=== PATIENT | female | born 1990 | race Two or more races ===

== ENCOUNTER 2022-10-24 10:10 | Emergency (ER) | payer SELFPAY ==
[~2022-10-24] VITALS: Ht 167.6 cm; Wt 78.6 kg
[2022-10-24 10:10] VITALS: BP 116/75; PULSE 120; RESP 18; O2SAT 98
[~2022-10-24 10:10] MED LIST: ACET-1080 PO; NITR-87 PO
== END 2022-10-24 12:20 | disposition home or self-care (01) ==
LOC: ER 10:10
DX: O02.1 Missed abortion (principal); F15.90 Other stimulant use, unspecified, uncomplicated; Z88.2 Allergy status to sulfonamides; Z88.8 Allergy status to other drugs, medicaments and biological substances; Z59.00 Homelessness unspecified
CPT/HCPCS: 36415; 84702

== ENCOUNTER 2022-11-26 17:56 | Emergency (ER) | payer SELFPAY ==
[~2022-11-26] VITALS: Ht 170.2 cm; Wt 77.2 kg
[2022-11-26 17:56] VITALS: BP 112/66; PULSE 94; RESP 17; O2SAT 96
== END 2022-11-26 18:35 | disposition left against medical advice (07) ==
LOC: EDBD 17:56 → ER 17:56
DX: T40.411A Poisoning by fentanyl or fentanyl analogs, accidental (unintentional), initial encounter (principal); F15.10 Other stimulant abuse, uncomplicated; R06.81 Apnea, not elsewhere classified; R40.4 Transient alteration of awareness; M06.9 Rheumatoid arthritis, unspecified; F17.210 Nicotine dependence, cigarettes, uncomplicated; Z90.49 Acquired absence of other specified parts of digestive tract; Z98.890 Other specified postprocedural states; Z88.8 Allergy status to other drugs, medicaments and biological substances; Z79.1 Long term (current) use of non-steroidal anti-inflammatories (NSAID); Z79.899 Other long term (current) drug therapy; Y92.89 Other specified places as the place of occurrence of the external cause

== ENCOUNTER 2023-02-02 18:13 | Emergency (ER) | payer SELFPAY ==
[~2023-02-02] VITALS: Ht 167.6 cm; Wt 88.0 kg
[2023-02-02 18:41] VITALS: BP 107/61; PULSE 84; RESP 22; O2SAT 98
== END 2023-02-02 19:30 | disposition left against medical advice (07) ==
LOC: ER 18:13
DX: R53.1 Weakness (principal); Z53.21 Procedure and treatment not carried out due to patient leaving prior to being seen by health care provider

== ENCOUNTER 2023-09-22 07:37 | Inpatient (IN) | payer OTHER ==
[~2023-09-22] VITALS: Ht 167.6 cm; Wt 72.7 kg
[2023-09-22 08:00] VITALS: PULSE 96; RESP 15; O2SAT 99
[2023-09-22 08:33] LABS: Basophils # (auto) 0 10 ^3/uL (0-0.2); Basophils % (auto) 0.2 % (0.0-2.0); Eosinophils # (auto) 0.1 10 ^3/uL (0-0.8); Eosinophils % (auto) 1.5 % (0.0-7.0); Hematocrit 43.1 % (36.0-46.0); Hemoglobin 14.3 g/dL (12.2-16.2); Lymphocytes # (auto) 1.2 10 ^3/uL (0.4-5.4); Mean Corpuscular Hemoglobin 31.3 pg (28.0-32.0); Mean Corpuscular Hgb Conc. 33.1 g/dL (32.0-36.0); Mean Corpuscular Volume 94.6 fL (80.0-100.0); Monocytes # (auto) 0.7 10 ^3/uL (0-1.3); Monocytes % (auto) 7.5 % (0.0-12.0); Neutrophils # (auto) 7.3 10 ^3/uL (1.6-8.6); Neutrophils % (auto) 77.8 % (37.0-80.0); Red Blood Cells 4.55 10^6/uL (4.0-5.20); Red Cell Distribution Width 13.5 % (11.8-14.3); White Blood Cell 9.3 10^3/uL (4.4-10.8)
[2023-09-22 08:41] LABS: Alanine Aminotransferase 24 U/L (7-40); Alkaline Phosphatase 51 U/L (46-116); Anion Gap 7 (5-15); Aspartate Aminotransferase 22 U/L (13-40); BUN/Creatinine Ratio 12.5 (10.0-20.0); Blood Alcohol < 3.0 mg/dL (<10); Blood Urea Nitrogen 7 mg/dL (9-23); Calcium 9.2 mg/dL (8.5-10.1); Carbon Dioxide 21 mmol/L (20-30); Chloride 110 mmol/L (98-107); Glucose 95 mg/dL (74-106); Potassium 3.9 mmol/L (3.5-5.1); Sodium 138 mmol/L (136-145)
[2023-09-22 08:42] LABS: Bilirubin, Total 0.5 mg/dL (0.2-1.0); Total Protein 6.6 g/dL (5.7-8.2)
[2023-09-22 09:09] LABS: Urine Bacteria None Seen /hpf (None Seen)
[2023-09-22 09:17] LABS: Urine Blood Negative /uL (Negative); Urine Clarity Clear (Clear); Urine Color Yellow (Yellow); Urine Mucus FEW (None Seen); Urine Protein, UAD Negative (Negative); Urine Specific Gravity 1.026 (1.001-1.035); Urine Urobilinogen Normal (Negative); Urine WBC 1 /hpf (0 - 5)
[2023-09-22 09:49] LABS: Amphetamine Screen, Urine Pos (NEGATIVE); Barbiturate Scree,Urine Neg (NEGATIVE); Benzodiazephine Screen, Urine Neg (NEGATIVE); Cocaine Screen, Urine Neg (NEGATIVE); Opiate Scree,Urine Neg (NEGATIVE)
[2023-09-22 09:50] LABS: Cannabinoid Screen, Urine Neg (NEGATIVE); Phencyclidine Screen, Urine Neg (NEGATIVE)
[2023-09-22] MEDS: SODIUM CHLORIDE 0.9% 1,000 ML IV ONE ×2 (10:45→16:48)
[2023-09-22 10:54] LABS: Acetaminophen < 2.0 UG/ML (10.0-20.0)
[2023-09-22 10:57] LABS: Salicylate < 3.0 mg/dL (2.8-20.0)
[2023-09-22] MEDS ORDERED: METOCLOPRAMIDE HCL 5MG/ml INJ 2ml VIAL IV PRN (12:15)
[2023-09-22] MEDS ORDERED: DOCUSATE SOD 100 MG CAP PO PRN (12:15)
[2023-09-22] MEDS: SODIUM CHLORIDE 0.9% 1,000 ML IV SCH (13:14)
[2023-09-22] MEDS ORDERED: NITROGLYCERIN 0.4 MG SL TAB SL PRN (13:30)
[2023-09-22] MEDS ORDERED: MORPHINE SULFATE INJ 2 MG/ml SYRG IV PRN (13:30)
[2023-09-22] MEDS ORDERED: LORazepam 2MG/ML-1ML VIAL IV PRN (14:30)
[2023-09-22 19:30] VITALS: PULSE 98; RESP 14; O2SAT 99
[2023-09-22 21:00] VITALS: PULSE 98; RESP 14; O2SAT 99
[2023-09-23 06:17] LABS: Basophils # (auto) 0 10 ^3/uL (0-0.2); Basophils % (auto) 0.4 % (0.0-2.0); Eosinophils # (auto) 0.4 10 ^3/uL (0-0.8); Eosinophils % (auto) 4.9 % (0.0-7.0); Hematocrit 40.1 % (36.0-46.0); Hemoglobin 13.6 g/dL (12.2-16.2); Lymphocytes # (auto) 1.7 10 ^3/uL (0.4-5.4); Mean Corpuscular Hemoglobin 31.7 pg (28.0-32.0); Mean Corpuscular Hgb Conc. 33.8 g/dL (32.0-36.0); Mean Corpuscular Volume 93.8 fL (80.0-100.0); Monocytes # (auto) 0.7 10 ^3/uL (0-1.3); Monocytes % (auto) 8.4 % (0.0-12.0); Neutrophils # (auto) 5.4 10 ^3/uL (1.6-8.6); Neutrophils % (auto) 65.3 % (37.0-80.0); Nucleated Red Blood Cells % 0.1 %; Red Blood Cells 4.27 10^6/uL (4.0-5.20); Red Cell Distribution Width 13.4 % (11.8-14.3); White Blood Cell 8.2 10^3/uL (4.4-10.8)
[2023-09-23 06:48] LABS: Alanine Aminotransferase 25 U/L (7-40); Albumin 3.5 g/dL (3.2-4.8); Alkaline Phosphatase 46 U/L (46-116); Anion Gap 6 (5-15); Aspartate Aminotransferase 23 U/L (13-40); Calcium 8.4 mg/dL (8.5-10.1); Carbon Dioxide 23 mmol/L (20-30); Chloride 110 mmol/L (98-107); Glucose 94 mg/dL (74-106); Potassium 3.4 mmol/L (3.5-5.1); Sodium 139 mmol/L (136-145)
[2023-09-23 06:49] LABS: BUN/Creatinine Ratio 11.1 (10.0-20.0); Bilirubin, Total 0.7 mg/dL (0.2-1.0); Blood Urea Nitrogen < 5 mg/dL (9-23); Total Protein 5.8 g/dL (5.7-8.2)
[2023-09-23 14:00] VITALS: TEMP 98.3
[2023-09-23 16:00] VITALS: BP 122/72
[2023-09-23 16:32] VITALS: PULSE 80; RESP 20; O2SAT 96
== END 2023-09-23 17:24 | disposition left against medical advice (07) | DRG 831 ==
LOC: ER 07:37 → EDBD 07:37 → EDUNIT# 07:37 → OVERFLOW 13:21
PROVIDERS: ADMIT Nurse Practitioner Family; ATTEND Nurse Practitioner Family
DX: O9A.211 Injury, poisoning and certain other consequences of external causes complicating pregnancy, first trimester (principal); G92.8 Other toxic encephalopathy; Z59.00 Homelessness unspecified; T40.412A Poisoning by fentanyl or fentanyl analogs, intentional self-harm, initial encounter; T43.652A Poisoning by methamphetamines intentional self-harm, initial encounter; F15.10 Other stimulant abuse, uncomplicated; O99.351 Diseases of the nervous system complicating pregnancy, first trimester; Z53.29 Procedure and treatment not carried out because of patient's decision for other reasons; F17.210 Nicotine dependence, cigarettes, uncomplicated; Y92.89 Other specified places as the place of occurrence of the external cause; Z88.2 Allergy status to sulfonamides; Z88.3 Allergy status to other anti-infective agents; Z90.49 Acquired absence of other specified parts of digestive tract
CPT/HCPCS: 36415; 76801; 80053; 80307; 80320; 80329; 81001; 81025; 84702; 85025; 93005; G0378

== ENCOUNTER 2024-04-28 17:12 | Observation (INO) | payer OTHER, MEDICARE ==
[~2024-04-28] VITALS: Ht 167.6 cm; Wt 99.8 kg
[2024-04-28] MEDS ORDERED: ACETAMINOPHEN IV 1000 MG/100ML (10MG/ML) IV PRN (17:45)
[2024-04-28] MEDS ORDERED: DIPHENOXYLATE W/ATROPINE 2.5 MG TAB PO ONE (17:45)
[2024-04-28] MEDS ORDERED: LACTATED RINGER'S 1,000 ML IV SCH (17:45)
[2024-04-28] MEDS: LACTATED RINGER'S 1,000 ML IV ONE (17:55)
[2024-04-28] MEDS ORDERED: PREN-96 PO (18:20)
[2024-04-28] MEDS ORDERED: ASPI-543 PO (18:20)
[2024-04-28 18:33] LABS: Protein, Urine 66.7 mg/dL (1-14)
[2024-04-28 18:36] LABS: Creatinine, Urine 215.43 mg/dL (30.0-125.0); Urine Protein/Creatinine Ratio 0.31
[2024-04-28 18:45] LABS: Amphetamine Screen, Urine Pos (NEGATIVE); Barbiturate Scree,Urine Neg (NEGATIVE); Benzodiazephine Screen, Urine Neg (NEGATIVE); Cannabinoid Screen, Urine Neg (NEGATIVE); Cocaine Screen, Urine Neg (NEGATIVE); Opiate Scree,Urine Neg (NEGATIVE); Phencyclidine Screen, Urine Neg (NEGATIVE)
[2024-04-28 18:48] LABS: Urine Bacteria FEW /hpf (None Seen); Urine Blood Negative /uL (Negative); Urine Clarity Clear (Clear); Urine Color Yellow (Yellow); Urine Mucus FEW (None Seen); Urine Protein, UAD 1+ (Negative); Urine Squamous Epithelial Cell FEW /hpf (<5); Urine Urobilinogen Normal (Negative); Urine WBC 1 /HPF (0-5)
[2024-04-28] MEDS: METOCLOPRAMIDE HCL 5MG/ml INJ 2ml VIAL IV ONE (19:01)
[2024-04-28] MEDS: ACETAMINOPHEN IV 1000 MG/100ML (10MG/ML) IV ONE (19:01)
--- NOTE | 2024-04-28 19:13 | DVH ---
EXAM: US OB ULTRASOUND COMP GTR 14 WKS CLINICAL HISTORY: abdominal pain TECHNIQUE: Real-time high-resolution grayscale ultrasound imaging of the pelvis is performed via tra nsabdominal and transvaginal technique. Comparison: 09/22/2023 FINDINGS: The following measurements are obtained (cm): BPD: 6.32 HC: 22.88 AC: 21.66 FL: 4.99 Estimated gestational age by ultrasound: 25 weeks 6 days. Estimated date of delivery: 08/05/2024 Estimated weight: 909g heart rate: 182bpm Amniotic fluid: Visually adequate. Cervix: Measures approximately 3 cm in length appears closed. Placenta: Anterior. No definite evidence of abruption or previa at this time. presentation: Cephalic Other: Licensed Land Surveyor reports good movement on real-time imaging. IMPRESSION: Single living intrauterine gestation as above.
[2024-04-28 19:55] LABS: Basophils # (auto) 0 10 ^3/uL (0-0.2); Basophils % (auto) 0.3 % (0.0-2.0); Eosinophils # (auto) 0.1 10 ^3/uL (0-0.8); Eosinophils % (auto) 0.9 % (0.0-7.0); Hematocrit 40.3 % (36.0-46.0); Hemoglobin 13.9 g/dL (12.2-16.2); Lymphocytes # (auto) 0.4 10 ^3/uL (0.4-5.4); Lymphocytes % (auto) 4.8 % (10.0-50.0); Mean Corpuscular Hemoglobin 32.3 pg (28.0-32.0); Mean Corpuscular Hgb Conc. 34.5 g/dL (32.0-36.0); Mean Corpuscular Volume 93.8 fL (80.0-100.0); Monocytes # (auto) 0.3 10 ^3/uL (0-1.3); Monocytes % (auto) 3.8 % (0.0-12.0); Neutrophils # (auto) 7.3 10 ^3/uL (1.6-8.6); Neutrophils % (auto) 90.2 % (37.0-80.0); Platelet Count (auto) 251 10^3/uL (140-450); Red Blood Cells 4.29 10^6/uL (4.0-5.20); Red Cell Distribution Width 14.2 % (11.8-14.3); White Blood Cell 8.1 10^3/uL (4.4-10.8)
[2024-04-28 20:09] LABS: Alanine Aminotransferase 10 U/L (7-40); Alkaline Phosphatase 69 U/L (46-116); Anion Gap 11 (5-15); Aspartate Aminotransferase 15 U/L (13-40); BUN/Creatinine Ratio 16.7 (10.0-20.0); Bilirubin, Total 0.6 mg/dL (0.2-1.0); Calcium 9.7 mg/dL (8.7-10.4); Carbon Dioxide 21 mmol/L (20-31); Chloride 107 mmol/L (98-107); Sodium 139 mmol/L (136-145); Total Protein 6.6 g/dL (5.7-8.2); Uric Acid 4.5 mg/dL (3.1-7.8)
[2024-04-28 20:14] LABS: INR 1.01 (0.9-1.15); Partial Thromboplastin Time 28.6 SEC (24.5-34.5); Prothrombin Time 10.7 sec (9.3-11.8)
[2024-04-28 20:22] LABS: Blood Urea Nitrogen 8 mg/dL (9-23); Glucose 106 mg/dL (74-106); Potassium 3.2 mmol/L (3.5-5.1)
--- NOTE | 2024-04-29 15:02 | DVHDS2 ---
Physician Discharge Progress N Final Diagnosis: n,v,diarrhea,dehydration drug use,colitis,no care Operations or Procedures: Operations or Procedures nst,labs,sono Commentary: Commentary pt went ama pt is meth pos ,no pnc ,pt left against med advise Condition on Discharge: Unstable Disposition: AMA Discharge Instructions: Diet: Regular, See Comment Activity: Follow Up/Referral: Please follow up with your primary OB as soon as possible. Medications: pt left ama Follow Up Care: Specialist: left ama Discharge Statement: "Patient was advised to return to the ER or call 911 if any headaches, dizziness, shortness of breath, chest pain, abdominal pain, bleeding, fevers, or worsening of medical condition. Patient was counseled about treatment plan, medications, possible side effects, patientverbalized understanding. All questions were answered to the best of my ability. This discharge took greater then 30 minutes in planning, reviewing documentation, counseling the patient, and discussing with other team members." YASHIRA ESPINOZA DO Apr 29, 2024 15:02
== END 2024-04-28 19:40 | disposition home or self-care (01) ==
LOC: LDRP 17:12 → UNDOADMIN 17:12 → LDRP 17:12 → UNDODISIN 19:40
PROVIDERS: ADMIT Obstetrics & Gynecology; ATTEND Obstetrics & Gynecology
DX: O26.892 Other specified pregnancy related conditions, second trimester (principal); R19.7 Diarrhea, unspecified; R10.9 Unspecified abdominal pain; O21.2 Late vomiting of pregnancy; Z3A.25 25 weeks gestation of pregnancy; Z79.899 Other long term (current) drug therapy; Z98.890 Other specified postprocedural states
CPT/HCPCS: 36415; 59025; 76805; 76817; 80053; 80307; 81001; 81002; 82570; 84156; 84550; 85025; 85610; 85730; 94760; 96361; 96365; 96375; G0378; J2765; 96360; J0131

== ENCOUNTER 2024-07-28 00:41 | Inpatient (IN) | payer OTHER, MEDICARE ==
[~2024-07-28] VITALS: Ht 167.6 cm; Wt 79.4 kg
[~2024-07-28 00:41] MED LIST changes: -ACET-1080 PO; +ASPI-543 PO; -NITR-87 PO; +PREN-96 PO
[2024-07-28] MEDS ORDERED: LACTATED RINGER'S 1,000 ML IV SCH (01:15)
[2024-07-28 02:00] LABS: Basophils # (auto) 0.1 10 ^3/uL (0-0.2); Basophils % (auto) 0.6 % (0.0-2.0); Eosinophils # (auto) 0.1 10 ^3/uL (0-0.8); Eosinophils % (auto) 1.4 % (0.0-7.0); Hematocrit 41.7 % (36.0-46.0); Hemoglobin 14.1 g/dL (12.2-16.2); Lymphocytes # (auto) 2.2 10 ^3/uL (0.4-5.4); Lymphocytes % (auto) 22.1 % (10.0-50.0); Mean Corpuscular Hemoglobin 28.6 pg (28.0-32.0); Mean Corpuscular Hgb Conc. 33.8 g/dL (32.0-36.0); Mean Corpuscular Volume 84.7 fL (80.0-100.0); Monocytes # (auto) 0.8 10 ^3/uL (0-1.3); Monocytes % (auto) 8.3 % (0.0-12.0); Neutrophils # (auto) 6.7 10 ^3/uL (1.6-8.6); Neutrophils % (auto) 67.6 % (37.0-80.0); Platelet Count (auto) 312 10^3/uL (140-450); Red Blood Cells 4.93 10^6/uL (4.0-5.20); Red Cell Distribution Width 13.4 % (11.8-14.3)
[2024-07-28 02:03] LABS: Fern Testing Negative
[2024-07-28 02:08] LABS: Protein, Urine 65.4 mg/dL (1-14)
[2024-07-28 02:11] LABS: Cannabinoid Screen, Urine Neg (NEGATIVE); Creatinine, Urine 69.69 mg/dL (30.0-125.0); Urine Bacteria FEW /hpf (None Seen); Urine Blood Negative /uL (Negative); Urine Clarity Turbid (Clear); Urine Color Light-Yellow (Yellow); Urine Protein, UAD 1+ (Negative); Urine Protein/Creatinine Ratio 0.94; Urine Specific Gravity 1.016 (1.001-1.035); Urine Squamous Epithelial Cell FEW /hpf (<5); Urine Urobilinogen Normal (Negative); Urine WBC 11 /HPF (0-5); Urine pH 6.5 (5.0-9.0)
[2024-07-28] MEDS ORDERED: PHISODERM TOP SOLN 240ML BTL TOP PRN (02:15)
[2024-07-28] MEDS ORDERED: miSOPROStol 50 MCG per PRE-CUT 1/2 TAB PO PRN (02:15)
[2024-07-28] MEDS ORDERED: LIDOCAINE 2%HCL (LOCAL ANESTH.) INJ 20ML MDV IJ PRN (02:15)
[2024-07-28] MEDS ORDERED: NALBUPHINE HCL 10 MG/1ml INJECTION IV PRN (02:15)
[2024-07-28] MEDS ORDERED: DERMOPLAST 60ML BOTTLE TOP PRN (02:15)
[2024-07-28] MEDS ORDERED: WITCH HAZEL-GLYCERIN PAD TOP PRN (02:15)
[2024-07-28 02:19] LABS: Alanine Aminotransferase 33 U/L (7-40); Albumin 3.8 g/dL (3.2-4.8); Anion Gap 9 (5-15); Aspartate Aminotransferase 32 U/L (13-40); BUN/Creatinine Ratio 23.5 (10.0-20.0); Blood Urea Nitrogen 16 mg/dL (9-23); Carbon Dioxide 26 mmol/L (20-31); Chloride 102 mmol/L (98-107); Glucose 91 mg/dL (74-106); Potassium 3.9 mmol/L (3.5-5.1); Sodium 137 mmol/L (136-145); Total Protein 6.6 g/dL (5.7-8.2)
[2024-07-28 02:22] LABS: INR 0.91 (0.9-1.15); Partial Thromboplastin Time 26.9 SEC (24.5-34.5); Prothrombin Time 9.7 sec (9.3-11.8)
[2024-07-28 02:27] LABS: Amphetamine Screen, Urine Pos (NEGATIVE); Barbiturate Scree,Urine Neg (NEGATIVE); Benzodiazephine Screen, Urine Neg (NEGATIVE); Cocaine Screen, Urine Neg (NEGATIVE); Opiate Scree,Urine Neg (NEGATIVE); Phencyclidine Screen, Urine Neg (NEGATIVE)
[2024-07-28 02:27] LABS: Alkaline Phosphatase 170 U/L (46-116); Bilirubin, Total 0.3 mg/dL (0.2-1.0); Calcium 10.5 mg/dL (8.7-10.4)
[2024-07-28] MEDS ORDERED: ONDANSETRON HCL 4 MG/2 ML VIAL IV PRN ×2 (02:30→05:30)
--- NOTE | 2024-07-28 03:06 | DVH ---
EXAM: US OB ULTRASOUND COMP GTR 14 WKS, US BIOPHYSICAL PROFILE HISTORY: NO CARE TECHNIQUE: Multiple real-time grayscale images of the gravid uterus with duplex Doppler color flow an d M-mode spectral analysis. COMPARISON: US OB ULTRASOUND COMP GTR 14 WKS on DOS: 04/28/24 FINDINGS: IUP single live fetus at 35 weeks 3 days average ultrasound age (AUA) based on composite averages of the BPD, head circumference, abdominal circumference and femur length Age based on (early ultrasound) : 35 weeks 3 days MEASUREMENTS: BPD: 8.7 cm GA: 35 w 1 d HC: 31.4 cm GA: 35 w 2 d AC: 31.7 cm GA: 35 w 4 d FL: 6.9 cm GA: 35 w 3 d Cephalic presentation. Anterior placenta. No evidence of placenta previa or abruption. Estimated weight 2681 +/-402.2 grams; 5 lbs 15+/-14 oz. heart rate 155 beats per minute MIRIAM 3.82 cm. IMPRESSION: 1. IUP single live fetus at 35 weeks 3 days AUA corresponding to an JED of 08/29/2024. 2. Oligohydramnios.
[2024-07-28] MEDS ORDERED: NALOXONE HCL 0.4 MG/ML VIAL IV ONE (03:15)
[2024-07-28] MEDS ORDERED: LIDOCAINE HCL 100 MG/5ML (2%) SYRG INJ IV ONE (03:53)
[2024-07-28] MEDS ORDERED: LIDOCAINE 2% TOPICAL JELLY 5 ML URJT TOP ONE (03:53)
[2024-07-28] MEDS ORDERED: ceFAZolin 1GM VL ONE (03:53)
[2024-07-28] MEDS ORDERED: PHENYLEPHRINE HCL 10 MG/ML VL ONE (03:54)
[2024-07-28] MEDS ORDERED: oxyTOCIN 10 UNIT/ML 10ML VIAL ONE (03:54)
[2024-07-28] MEDS ORDERED: DexAMETHasone SOD PHOS 10MG/1ML VIAL INJ ONE (03:54)
[2024-07-28] MEDS ORDERED: GLYCOPYRROLATE 0.2 MG/ML 1ML VIAL ONE (03:54)
[2024-07-28] MEDS ORDERED: ONDANSETRON HCL 4 MG/2 ML VIAL ONE (03:54)
[2024-07-28] MEDS ORDERED: ETOMIDATE (2MG/ML) 20ML VIAL IV ONE (03:56)
[2024-07-28] MEDS ORDERED: fentaNYL CITRATE 100 MCG/2 ML VL ONE (04:03)
--- NOTE | 2024-07-28 04:03 | DVHHP2 ---
OB CC & HPI Date Date of Admission: Jul 28, 2024 Patient Identification: : 9 Para: 0 (SAB5, Ectopic3?) EDC: August 05, 2024 EGA: 38.6 Chief Complaints: Reason for admission: rupture of membranes History of Present Complaints 34y homeless female, brought in by ambulance for acute abdominal pain Pain started suddenly a few hours ago, denies VB or PROM however found to have ruptured membranes by exam with positive AmniSure test and MIRIAM 3.2 cm (oligohydramnios) Patient w/ NO PNL care, history of drug use , last used Amphetamines earlier today. BP elevated 140/90's with 1+ proteinuria and urine prot/cr ratio 0.94 (elevated) - Denies any CP, KUMAR, epigastric pain, or scotomata. PIH labs are otherwise unremarkable After admission, FHR found to be Categ 2 (Tachycardia baseline 160's bpm with mod variability) and then began having severe variable decles and prolonged decels x 3 episodes. Cervix only 2cm, remote from delivery. Consented for emergent 1' c/section for indications NRFHR pattern remote from delivery. Past Medical History Cardiac: No pertinent Hx Pulmonary: No pertinent Hx Central Nervous System: No pertinent Hx GI: No pertinent Hx Hemotology/Oncology: No pertinent Hx Hepatobiliary: No pertinent Hx Psychiatric: No pertinent Hx Musculoskeletal: No pertinent Hx Rheumotologic: No pertinent Hx Infectious Disease: No peritnent Hx ENT: No pertinent Hx Renal/: No pertinent Hx Endocrine: No pertinent Hx Dermatology: No pertinent Hx Past Surgical History: Cholecystectomy, Other (D&C) OB History OB History Care: None Ultrasounds: Normal mid trimester US Obstetrical Complications: Pre-eclampsia Medical Complications: Other (Multisubsstane drug abuse) Allergies: Coded Allergies: Metronidazole (Verified Allergy, Unknown, 10/24/22) Sulfamethoxazole w/Trimethoprim (Verified Allergy, Unknown, 10/24/22) Home Meds Reported Medications Aspirin (Aspir-Low) 81 Mg Tab, 81 MG PO DAILY for 30 Days, MG 04/28/24 Vit W/ Ferrous Fumara ( One Daily) Daily Tab, 1 TAB PO DAILY, #90 TAB 3 Refills 04/28/24 Current Medications Current Medications Medications (Trade) Dose Ordered Sig/Clinton Route PRN Reason Start Time Stop Time Status Last Admin Lactated Ringer's 1,000 ml @ 125 mls/hr Q8H IV 07/28/24 01:15 Nalbuphine HCl (Nubain) 10 mg Q4HP PRN IV MODERATE PAIN (4-6 PAIN SCALE) 07/28/24 02:15 Cefazolin Sodium 50 ml @ 100 mls/hr Q8HR IV 07/28/24 06:00 Witch Bharti (Tucks) 1 pad PRN PRN TOP PERINEAL AREA DISCOMFORT 07/28/24 02:15 Sodium Lauryl Sulfate (Phisoderm) 240 ml PRN PRN TOP PERINEAL AREA DISCOMFORT 07/28/24 02:15 Benzocaine (Dermoplast) 1 applic PRN PRN TOP PERINEAL AREA DISCOMFORT 07/28/24 02:15 Misoprostol (Cytotec) 50 mcg Q4HPRN PRN PO CERVICAL RIPENING 07/28/24 02:15 Lidocaine HCl (Xylocaine) 40 ml ONCE PRN IJ PERINEAL AREA DISCOMFORT 07/28/24 02:15 Ondansetron HCl (Zofran) 4 mg Q4HP PRN IV NAUSEA / VOMITING 07/28/24 02:30 Family & Social History Family/Social History Past Family/Social History: Unknown to patient Blood Type: B+ GBS Status: Unknown Review of Systems Constitutional: No symptom reported Ears, Nose, & Throat: No symptom reported Eyes: No symptom reported Pulmonary/Respiratory: No symptom reported Cardiovascular: No symptom reported Gastrointestinal: Abdominal Pain Genitourinary: No symptom reported Musculoskeletal: No symptom reported Skin: No symptom reported Psychiatric: No symptom reported Endocrine: No symptom reported Hemotologic/Lymphatic: No symptom reported OB Admission Exam Physical Exam HEENT: NCAT Heart: Other (Tachycardia) Lungs: Clear Extremities: Normal Reflexes: Normal Cervical Dilatation: 2cm Effacement: Other (90) Station: -2 Membranes: Ruptured Amniotic Fluid: Clear Accelerations: No Accelerations Decelerations: Prolonged Decelerations Short Term Variability: Present Steel Rule Die Maker Variability: Average (6-25) Intensity: Mild OB Plan Plan Admitting Diagnosis: IUP 38.6 wk dated by 2nd trim US (25 wk) NO CARE, SROM, OLIGOHYDRAMNIOS DRUG ABUSE + AMPHETAMINES PRE-ECLAMPSIA w/OUT SEVERE FEATURES CATEG 2 FHR remote from delivery, fetus at risk Plan: Section Other Plan: AFTER ATTEMPTING TO STABILIZE PATIENT, FHR did not respond and Categ 2 FHR pattern persists remote from delivery, fetus at risk CONSENTED FOR STAT 1' C/S. - R/B/A discussed with patient. risks of anesthesia reviewed - Risks of surgery: Scar, pain, bleeding, infection, poss injury to b owel/bladder , adjacent organs, blood transfusion all reviewed in detail - Terbutaline x 1 given to relax uterus and hopefully improve frequency of variable decels while OR crew and Anesthesia is called in for STAT C/S Visit Coding OBGYN Date of Service: Jul 28, 2024 Billing Provider: LENKA MOREJON DO [employer] Common Visit Codes: 30402-[id number] INP/OBS CARE (HIGH) LENKA MOREJON DO Jul 28, 2024 04:03
[2024-07-28] MEDS: TERBUTALINE SULFATE 1 MG/ML 1ML VIAL SC ONE ×2 (04:12→08:05)
[2024-07-28] MEDS: ceFAZolin 1GM/50ML 50 ML IV SCH ×2 (04:13→12:51)
[2024-07-28] MEDS: LACTATED RINGER'S 1,000 ML IV ONE (04:14)
[2024-07-28] MEDS ORDERED: HYDROmorphone HCL 2 MG/ML VL/or syr ONE (04:50)
[2024-07-28] MEDS ORDERED: KETOROLAC TROMETH 30 MG/ML 1ML VIAL ONE (04:50)
[2024-07-28 05:21] VITALS: PULSE 84; RESP 13; O2SAT 100
[2024-07-28] MEDS ORDERED: ceFAZolin 1GM/50ML 50 ML IV SCH (05:30)
[2024-07-28] MEDS ORDERED: HYDROmorphone HCL 2 MG/ML VL/or syr IV PRN ×4 (05:30→05:45)
[2024-07-28] MEDS ORDERED: LABETALOL HCL 20 MG/4 ML VL IV PRN (05:30)
--- NOTE | 2024-07-28 05:43 | DVHOP ---
DATE OF SURGERY: 07/28/2024 PREOPERATIVE DIAGNOSES: * Term intrauterine , 38 weeks 6 days in early labor with spontaneous rupture of membranes. * Category 2 heart rate tracing, remote from delivery. * No care. * Maternal amphetamine drug use. * Preeclampsia without severe features. FINAL DIAGNOSES: * Term intrauterine , 38 weeks 6 days in early labor with spontaneous rupture of membranes. * Category 2 heart rate tracing, remote from delivery. * No care. * Maternal amphetamine drug use. * Preeclampsia without severe features. * Oligohydramnios. PROCEDURE PERFORMED: Emergent primary low transverse section via Pfannenstiel skin incision. SURGEON: Esteban Tucker DO CINDER WORKER: contract technician ANESTHESIOLOGIST: Trace Rob TYPE OF ANESTHESIA: General endotracheal. 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 The patient admits to using amphetamine a few hours prior to admission. She presented with acute abdominal pain, early labor, and apparent spontaneous rupture of membranes that was confirmed by exam and positive AmniSure test. The ultrasound demonstrated oligohydramnios with a fluid of 3.2. The patient had persistent category 2 heart rate pattern with tachycardia in the 160s with moderate variability. The patient began to have moderate variable and prolonged decelerations. Her cervix was only 2 cm. Therefore, she was consented for primary delivery. DESCRIPTION OF FINDINGS: Delivery of a liveborn female infant, cephalic presentation, clear, but very scant amniotic fluid. scores of 8 and 9, weight 2435 g (5 pounds 6 ounces). Cord pH arterial 7.27. Normal uterus. Normal bilateral fallopian tubes, ovaries, and a placenta. TECHNICAL PROCEDURE: After informed consent was obtained, the patient was taken to the operating room where she underwent smooth induction with general anesthesia. She was placed in the supine position with a slight leftward tilt. She was sterilely prepped and draped in the usual sterile fashion. A Pfannenstiel skin incision was made with the scalpel. The incision was developed sharply to the underlying layer of fascia. The fascia was incised in the midline and extended laterally with curved Hooper scissors. The rectus muscles were bluntly and sharply dissected off the rectus fascia. Blunt entry into the peritoneal cavity was performed digitally. The peritoneal incision was extended superiorly and inferiorly with good visualization of the bladder. This incision was then manually stretched. The Sarabjit O retractor was placed into the incision. The lower uterine segment was identified and incised with a second scalpel in a low transverse fashion. The incision was extended laterally with bandage scissors. The amniotic fluid membranes were ruptured. The fluid was clear. The baby was found to be in the cephalic presentation. There was no nuchal cord. The baby was delivered atraumatically. The cord was clamped and cut after 30 seconds and the baby handed off to the waiting pediatric team. Cord gas and cord blood was obtained. The placenta was spontaneously delivered. The uterus was exteriorized and cleared of all clots and debris using moist laparotomy sponges. The uterine incision was repaired in 2 layers using #1 Stratafix spiral. This was repaired in continuous running fashion in 2 layers with good hemostasis and tissue approximation noted. The uterus was returned to the abdomen. The cul-de-sac and pericolic gutters were cleared of all clots and debris. The abdomen was irrigated with sterile water. Hemostasis was confirmed. All instrumentation and laps were removed from the patient's abdomen. The lap counts were correct. I then proceeded to close the rectus fascia using #1 PDS Stratafix suture. The rectus fascia was closed in continuous running fashion with good tissue approximation. The subcutaneous tissue was irrigated. Bleeding points were controlled with cautery. The subcutaneous tissue was approximated with 2-0 plain gut and finally the skin was closed in subcuticular fashion using 3-0 Monocryl Stratafix. Sylke dressing was then placed over the incision. The patient was then awakened. She was taken to recovery room in stable condition. INTRAOPERATIVE COMPLICATIONS: None. ESTIMATED BLOOD LOSS: 600 mL. POSTOPERATIVE CONDITION: Stable. SPECIMENS: Cord blood, cord gas and placenta. MEDICATIONS: The patient received 2 g of Ancef prior to skin incision. DO SAVI Wick/BENJAMÍN TID: [id number] RECEIPT: [id number]
[2024-07-28] MEDS: LACTATED RINGER'S 1,000 ML IV SCH (06:00)
[2024-07-28 06:30] VITALS: BP 120/82; PULSE 85; RESP 16; TEMP 97.9; O2SAT 98
[2024-07-28] MEDS: LACT. RINGERS/OXYTOCIN 20UNITS 500 ML IV ONE ×2 (07:21→07:22)
[2024-07-28] MEDS: ONDANSETRON HCL 4 MG/2 ML VIAL IV ONE (07:23)
[2024-07-28] MEDS: LACT. RINGERS/OXYTOCIN 20UNITS 1,000 ML IV SCH (07:23)
[2024-07-28] MEDS: LIDOCAINE HCL 2 %PF INJ 10ML AMP IJ ONE (08:05)
[2024-07-28] MEDS: ePHEDrine SULFATE 50 MG/ML AMP IV ONE (08:05)
[2024-07-28] MEDS: ROPIVACAINE HCL 0 ML ONE (08:05)
[2024-07-28] MEDS: SUCCINYLCHOLINE CHLORIDE 20 MG/ML 10ML VIAL IV ONE (08:05)
[2024-07-28] MEDS: ACETAMINOPHEN IV 1000 MG/100ML (10MG/ML) IV PRN (10:45)
[2024-07-28 10:50] VITALS: BP 118/65; PULSE 90; RESP 18; TEMP 98; O2SAT 96
[2024-07-28 14:30] VITALS: BP 131/96; PULSE 105; RESP 20; TEMP 98.1; O2SAT 97
[2024-07-28] MEDS: FAMOTIDINE (10MG/ML) 2ML VL IV PRN (15:21)
[2024-07-28] MEDS: KETOROLAC TROMETH 30 MG/ML 1ML VIAL IV PRN (17:31)
[2024-07-28 19:00] VITALS: BP 120/82; PULSE 96; RESP 16; TEMP 97.8; O2SAT 98
[2024-07-28 22:34] VITALS: BP 118/68; PULSE 110; RESP 16; TEMP 98; O2SAT 98
[2024-07-29 03:00] VITALS: BP 119/79; PULSE 106; RESP 17; TEMP 98; O2SAT 95
[2024-07-29] MEDS ORDERED: HYDROcodone-ACET 5/325MG TAB PO PRN ×2 (05:45)
[2024-07-29] MEDS ORDERED: IBUPROFEN 800 MG TAB PO PRN (05:45)
[2024-07-29] MEDS ORDERED: SIMETHICONE 80 MG CHEWABLE TABLET PO SCH (06:00)
--- NOTE | 2024-07-29 06:15 | DVHPN2 ---
Chief Complaints Patient reports: No new complaints, Feels better (Minimal lochia ambulating tolerating her diet denies headache visual changes shortness of breath cough or nor leg pain) Nursing reports: No new complaints, No abdominal pain, No chest pain, No dizziness, No cough Objective Vitals Vital Signs Date Time Temp Pulse Resp B/P (MAP) Pulse Ox O2 Delivery O2 Flow Rate FiO2 07/29/24 03:00 98.0 106 17 119/79 (92) 95 98.0 07/28/24 18:30 Room Air 07/28/24 06:30 4.0 07/28/24 05:21 100 Medications Current Medications Medications (Trade) Dose Ordered Sig/Clinton Route PRN Reason Start Time Stop Time Status Last Admin Acetaminophen (Ofirmev) 1,000 mg Q8HPRN PRN IV MODERATE PAIN (4-6 PAIN SCALE) 07/28/24 07:30 07/29/24 07:29 07/29/24 05:38 Acetaminophen/ Hydrocodone Bitart ([place] 5/325MG Tab) 1 tab Q4HPRN PRN PO FOR PAIN 1-6 07/29/24 05:45 Acetaminophen/ Hydrocodone Bitart ([place] 5/325MG Tab) 2 tab Q4HPRN PRN PO FOR PAIN 7-10 07/29/24 05:45 Dimethicone (Mylicon Tab) 80 mg QID PO 07/29/24 06:00 Docusate Sodium (Colace Capsule) 100 mg Q12HR PO 07/29/24 10:00 Famotidine (Pepcid Injection) 20 mg Q12HR PRN IV NAUSEA / VOMITING 07/28/24 15:30 07/28/24 15:21 Ibuprofen (Motrin Tablet) 800 mg Q8HP PRN PO BREAKTHROUGH PAIN 07/29/24 05:45 General: Normal ENT: Normal Lungs: Normal Cardiovascular: Normal Heart Murmur: no murmur Abdominal: Normal (Wound clean dry intact) Musculoskeletal: Normal Extremities: Normal Skin: Normal Studies Laboratory Tests 07/28/24 01:25 Test 07/28/24 01:25 Range/Units Serum Glucose 91 74-106 mg/dL Ass/Plan Assessment Advanced care see orders Plan Advanced care see postop day 1 orders. MARY BETH DELEON DO Jul 29, 2024 06:15
[2024-07-29 06:47] VITALS: BP 103/63; PULSE 88; RESP 16; TEMP 98.7; O2SAT 97
[2024-07-29 08:15] LABS: Basophils # (auto) 0 10 ^3/uL (0-0.2); Basophils % (auto) 0.4 % (0.0-2.0); Eosinophils # (auto) 0.1 10 ^3/uL (0-0.8); Hematocrit 32.8 % (36.0-46.0); Lymphocytes # (auto) 2.3 10 ^3/uL (0.4-5.4); Lymphocytes % (auto) 22.9 % (10.0-50.0); Mean Corpuscular Hemoglobin 28.9 pg (28.0-32.0); Mean Corpuscular Hgb Conc. 33.4 g/dL (32.0-36.0); Mean Corpuscular Volume 86.6 fL (80.0-100.0); Monocytes # (auto) 0.8 10 ^3/uL (0-1.3); Monocytes % (auto) 7.8 % (0.0-12.0); Neutrophils # (auto) 6.9 10 ^3/uL (1.6-8.6); Neutrophils % (auto) 67.9 % (37.0-80.0); Platelet Count (auto) 252 10^3/uL (140-450); Red Blood Cells 3.79 10^6/uL (4.0-5.20); Red Cell Distribution Width 13.5 % (11.8-14.3); White Blood Cell 10.2 10^3/uL (4.4-10.8)
[2024-07-29] MEDS ORDERED: DOCUSATE SOD 100 MG CAP PO SCH (10:00)
[2024-07-29 11:00] VITALS: BP 122/66; PULSE 101; RESP 16; TEMP 98.5; O2SAT 95
== END 2024-07-29 12:24 | disposition home or self-care (01) | DRG 787 ==
LOC: LDRP 00:41 → UNDOADMOB 00:41 → LDRP 02:14 → OBSVTOIN 02:14 → INTOOBSV 02:14 → LDRP 14:17
PROVIDERS: ADMIT Obstetrics & Gynecology; ATTEND Obstetrics & Gynecology
PROC: 10D00Z1 Extraction of Products of Conception, Low, Open Approach (ICD-10-PCS; principal; 2024-07-28 04:31)
DX: O14.94 Unspecified pre-eclampsia, complicating childbirth (principal); O41.03X0 Oligohydramnios, third trimester, not applicable or unspecified; Z59.00 Homelessness unspecified; O76 Abnormality in fetal heart rate and rhythm complicating labor and delivery; O99.324 Drug use complicating childbirth; F15.90 Other stimulant use, unspecified, uncomplicated; Z3A.38 38 weeks gestation of pregnancy; Z37.0 Single live birth; Z90.49 Acquired absence of other specified parts of digestive tract; Z88.3 Allergy status to other anti-infective agents; Z79.82 Long term (current) use of aspirin; Z79.899 Other long term (current) drug therapy
CPT/HCPCS: 36415; 76805; 76819; 80053; 80307; 81001; 81002; 82570; 84112; 84156; 84550; 85025; 85610; 85730; 86703; 86780; 86803; 86850; 86900; 86901; 87340; 94760; 94762; 96360; 96361; G0378; J0131; J0330; J0690; J1100; J1885; J2405; J2590; J3490